=== PATIENT | female | born 2000 | race Caucasian/White ===

== ENCOUNTER 2023-01-10 14:52 | Emergency (ER) | payer OTHER, SELFPAY ==
--- NOTE | ~2023-01-10 | XR_ITS ---
Indication: Pain EXAMINATION: Right hand. 3 views the right hand are obtained and 1 detailed image of the right wrist. Navicular view There is no fracture or dislocation in the right hand. No fracture of the navicular on the detailed navicular view. XR/XR hand wrist RT IMPRESSION: No fracture or dislocation is seen
[2023-01-10 14:59] VITALS: BP 135/72; PULSE 93; RESP 18; TEMP 36.8; O2SAT 98
--- NOTE | 2023-01-10 14:59 | ED.UPPEXIN ---
HPI - Extremity Injury (Upper) General Chief Complaint: Extremity Problem <JOHN Solorio Last Filed: 01/10/23 15:00> Stated Complaint: R hand Inj/work inj <JOHN Solorio Last Filed: 01/10/23 15:00> Time Seen by Provider: 01/10/23 15:53 <JOHN Solorio Last Filed: 01/10/23 15:00> Source: patient <JOHN Wayne Last Filed: 01/10/23 18:14> Mode of arrival: ambulatory <JOHN Wayne Last Filed: 01/10/23 18:14> History of Present Illness HPI narrative: 22-year-old female with no significant past medical history presenting to the ED complaining of right hand injury s/p being slammed/crushed in metal door at work this morning. Reports door closes automatically and hand got stuck. Denies injury to other area, numbness/tingling, weakness <JOHN Wayne Last Filed: 01/10/23 18:14> MD complaint: injury to: hand <JOHN Wayne Last Filed: 01/10/23 18:14> Related Data Allergies/Adverse Reactions: Allergies Allergy/AdvReac Type Severity Reaction Status Date / Time No Known Allergies Allergy Unverified 06/14/20 17:04 CATS Allergy Unknown Uncoded 11/02/19 00:00 <JOHN Solorio Last Filed: 01/10/23 15:00> Review of Systems Review of Systems: Constitutional: No Fever, No Chills ENT/Mouth: No Ear Pain, No Nasal Congestion, No Sinus Pain, No Hoarseness, No sore throat, No Rhinorrhea, No Swallowing Difficulty Cardiovascular: No Chest Pain, No SOB Respiratory: No Cough, No Sputum Gastrointestinal: No Nausea, No Vomiting, No Diarrhea, No Constipation, No Abdominal pain Genitourinary: No Dysuria, No Urinary Frequency, No Hematuria, No Urgency, No Flank Pain Musculoskeletal: + joint pain, No Myalgias, + Joint Swelling Skin: + Ecchymosis, No rash Neuro: No Weakness, No Numbness, No Paresthesias <JOHN Wayne Last Filed: 01/10/23 18:14> Yes all other systems are reviewed and are negative <JOHN Wayne - Last Filed: 01/10/23 18:14> Constitutional: Constitutional: Reports as per HPI <JOHN Wayne - Last Filed: 01/10/23 18:14> [facility] Past Medical History Attestation statement: The following information was validated with the patient. <JOHN Wayne - Last Filed: 01/10/23 18:14> Social History Social History: Social History Advance Directives: No Advance Directives Information Provided: No <JOHN Solorio - Last Filed: 01/10/23 15:00> Physical Exam Vital Signs: Vital Signs: Last Vital Signs Temp 98.2 F 01/10/23 14:59 Pulse 93 01/10/23 14:59 Resp 18 01/10/23 14:59 BP 135/72 01/10/23 14:59 Pulse Ox 98 01/10/23 14:59 O2 Del Method Room Air 01/10/23 14:59 BMI result Body Mass Index 30.0 <JOHN Solorio - Last Filed: 01/10/23 15:00> Vital Signs: Last Vital Signs Temp 98.2 F 01/10/23 14:59 Pulse 93 01/10/23 14:59 Resp 18 01/10/23 14:59 BP 135/72 01/10/23 14:59 Pulse Ox 98 01/10/23 14:59 O2 Del Method Room Air 01/10/23 14:59 BMI result Body Mass Index 30.0 <JOHN Wayne - Last Filed: 01/10/23 18:14> Const: General: cooperative, healthy appearing, comfortable and no acute distress <JOHN Wayne - Last Filed: 01/10/23 18:14> Orientation/consciousness: patient oriented x3 <JOHN Wayne - Last Filed: 01/10/23 18:14> Limitations: no limitations <JOHN Wyane - Last Filed: 01/10/23 18:14> HEENT: Head: Yes normal to inspection and Yes atraumatic <Zaira Ramos PA - Last Filed: 01/10/23 18:14> Ears: hearing grossly normal bilaterally <Zaira Ramos PA - Last Filed: 01/10/23 18:14> General nose exam: Normal external nose present <Zaira Ramos PA - Last Filed: 01/10/23 18:14> Face and sinus: Yes normal facial exam <Zaira Ramos PA - Last Filed: 01/10/23 18:14> Eyes: General: appearance normal, both eyes and all related structures <Zaira Ramos PA - Last Filed: 01/10/23 18:14> EOM: EOMs intact bilaterally <Zaira Ramos PA - Last Filed: 01/10/23 18:14> Neck: Neck: Yes normal visual inspection and Yes no meningeal signs <Zaira Ramos PA - Last Filed: 01/10/23 18:14> Resp: Effort & Inspection: normal respiratory effort and no respiratory distress <Zaira Ramos PA - Last Filed: 01/10/23 18:14> Cardio: Rate: regular rate <Zaira Ramos PA - Last Filed: 01/10/23 18:14> Peripheral pulses: radial pulses present and ulnar radial pulses present <Zaira Ramos PA - Last Filed: 01/10/23 18:14> Skin: Rashes: no rashes <Zaira Ramos PA - Last Filed: 01/10/23 18:14> Neuro: General: patient oriented x3, tone normal and no meningeal signs <Zaira Ramos PA - Last Filed: 01/10/23 18:14> Gait exam (Neuro): Normal gait present <Zaira Ramos PA - Last Filed: 01/10/23 18:14> Extrem: Other: Right hand with noted swelling and ecchymosis > 3rd and 4th MCPs. + tender to palpation. Full range of motion to all digits and finger to thumb opposition intact. Sensation intact to light touch. Wrist nontender, no snuffbox tenderness <Zaira Ramos PA - Last Filed: 01/10/23 18:14> Course Course Course Narrative: This is an RME: Additional HPI, ROS, PE not included below will be deferred to primary provider. 22-year-old female presents with right knuckle/hand/wrist pain status post getting caught in a heavy bathroom door. Patient reports pain worse with movement better at rest. Denies numbness and tingling. Patient has fracture that wrist in the past. This was a work related injury. Physical exam with discomfort with range of motion of right wrist. Plan- iamging <JOHN Solorio - Last Filed: 01/10/23 15:00> This is an RME: Additional HPI, ROS, PE not included below will be deferred to primary provider. 22-year-old female presents with right knuckle/hand/wrist pain status post getting caught in a heavy bathroom door. Patient reports pain worse with movement better at rest. Denies numbness and tingling. Patient has fracture that wrist in the past. This was a work related injury. Physical exam with discomfort with range of motion of right wrist. Plan- iamging 1630--XR hand wrist RT IMPRESSION: No fracture or dislocation is seen Results discussed with patient including worrisome signs and symptoms and strict return precautions, and when to return to the emergency department. They verbalized understanding and feel safe for discharge at this time. <JOHN Wayne - Last Filed: 01/10/23 18:14> Medical Decision Making Medical Decision Making MDM Narrative: 22-year-old female with no significant past medical history presenting to the ED complaining of right hand injury s/p being slammed/crushed in metal door at work this morning. On exam vital signs stable, NAD, nontoxic appearing, physical exam as noted above. Concern for crush injury/fracture vs sprain. No evidence of cellulitis/infection. Low suspicion for septic joint Plan: X-rays Please refer to course for remaining clinical decision making, interpretation of labs/imaging results, and discussions with consultants and/or family members. <JOHN Wayne Last Filed: 01/10/23 18:14> Differential Diagnosis Differential Diagnoses: The differential diagnosis associated with the presentation includes <JOHN Wayne Last Filed: 01/10/23 18:14> As above <JOHN Wayne Last Filed: 01/10/23 18:14> Admission/Observation Consideration of admission/observation: Escalation of care including admission/observation considered <JOHN Wayne - Last Filed: 01/10/23 18:14> Lab Data MDM Lab Attestation statement: I reviewed the patient's lab results. <JOHN Wayne - Last Filed: 01/10/23 18:14> Radiology Impression Discussion of test interpretation with radiology: I have reviewed the radiologist's reading. <JOHN Wayne - Last Filed: 01/10/23 18:14> External Record Review External record reviewed: Inpatient record, Office record, Outpatient record, Prior outpatient labs, Prior outpatient radiology, Primary care record and Outside ED record <JOHN Wayne - Last Filed: 01/10/23 18:14> Discharge Plan Discharge Clinical Impression: Crush injury of hand <JOHN Solorio - Last Filed: 01/10/23 15:00> Patient Disposition: Home, Self-Care <JOHN Solorio - Last Filed: 01/10/23 15:00> Instructions: Crush Injury (ED) <JOHN Solorio - Last Filed: 01/10/23 15:00> Additional Instructions: Your x-rays do not show a fracture/break. you likely sprained your hand Ice and elevate. Take Tylenol and Motrin as needed for pain If symptoms persist or worsen, pain becomes unbearable, area begins to look infected return to the ED <JOHN Solorio - Last Filed: 01/10/23 15:00> Referrals: Physician,Unknown J [Primary Care Provider] - <JOHN Solorio - Last Filed: 01/10/23 15:00> Interventions: ED Discharge Assessment Last Done: 01/10/23 16:52 <JOHN Solorio - Last Filed: 01/10/23 15:00> Discharge Date/Time: 01/10/23 16:53 <JOHN Solorio - Last Filed: 01/10/23 15:00>
--- OUTSIDE RECORDS SUMMARY | 2023-01-10 16:14 | XMS_ITS | Continuity of Care Document ---
Author Name Unknown Organization [facility] ter Address [address] [place] [id number]- Care Team Providers Care Production Editor Name Role Phone Villa Ahumada MD Primary Care Physician Encounter [facility] [place] Date(s): 10/14/19 - 10/14/[address] [address]- [facility] Discharge Disposition: A-D/C Home Attending Physician: David Schaeffer MD Admitting Physician: David Schaeffer MD Referring Physician: Not on Staff, Referring MD Allergies, Adverse Reactions, Alerts No Known Medication Allergies Substance Reaction Severity Status Cats Active Medications albuterol 90 mcg/inh inhalation powder 1 puffs, Inhalation, Every 4 hours, PRN as needed, # 1 each, 0 Refills, Maintenance, 11/23/16 20:37:30, Powder Start Date: 11/23/16 Status: Ordered naproxen 250 mg oral tablet 250 mg, 1, tablet, By Mouth, 2 times a day, PRN, # 20 tablet, Refills 0, Tot. Refills 0, Maintenance, for pain, 10/14/19 16:04:00 EST, Print Requisition Start Date: 10/14/19 Status: Ordered Results Radiology Reports * Exam Date Time Procedure Performing Provider Status 10/14/19 3:06 PM Hand Min 3 Views Right Julien , Car men; Auth (Verified) Notes: (Hand Min 3 Views Right) Reason For Exam: Pain RESULT: Hand Min 3 Views Right Hand Min 3 Views Right, 3 views Reason: Pain; Clinical Question(s): Fracture; Hx of Present Illness: shut right hand in door 6 daysago, pain, unable to move; Other Objective Findings: alert, active, resp unlabored, mmm, right handwith swelling and bruising, + CMS COMPARISON: None. FINDINGS: No fractures or bone lesions. No arthritic changes. Normal soft tissues. IMPRESSION: No acute fracture or dislocation. No significant degenerative change. WSN: [id number] Dictated By: Celestine Nair MD Dictated Date/Time: 10/14/19 3:10 pm Reviewed By: Celestine Nair MD Signed By: Celestine Nair MD Signed Date/Time: 10/14/19 3:10 pm Transcribed By: ANAI Transcribed Date/Time: 10/14/19 3:09 pm Vital Signs Most recent to oldest [Reference Range]: 1 2 Height 153 cm (10/14/19 2:39 PM) 153 cm (10/14/19 2:18 PM) Weight 53.7 kg (10/14/19 2:39 PM) 53.7 kg (10/14/19 2:18 PM) Oxygen Saturation [94-100 %] 100 % (10/14/19 2:18 PM) Pulse Rate [55-90 bpm] 65 bpm (10/14/19 2:18 PM) Body Mass Index [18.5-24.99] 22.94 (10/14/19 2:18 PM) Blood Pressure [80-130/50-80 mm Hg] 110/ 53mm Hg (10/14/19 2:18 PM) Respiratory Rate [16-30 br/min] 18 br/mi n (10/14/19 2:18 PM) Temperature [96.8-100.4 DegF] 98.0 DegF (10/14/19 2:18 PM) Mode of Delivery (Oxygen) Room air (10/14/19 2:18 PM) Blood pressure sites Arm, left (10/14/19 2:18 PM) Temperature Route Oral (10/14/19 2:18 PM) Dry Weight 53.7 kg (10/14/19 2:39 PM) 53.7 kg (10/14/19 2:18 PM) Weight Obtained Via Standing scale (10/14/19 2:18 PM) Dry Weight Obtained Via Standing scale (10/14/19 2:18 PM)
== END 2023-01-10 16:53 | disposition home or self-care (01) ==
PROVIDERS: Emergency Provider Emergency Medicine
DX: S67.21XA Crushing injury of right hand, initial encounter (principal); W23.1XXA Caught, crushed, jammed, or pinched between stationary objects, initial encounter; Y93.89 Activity, other specified; Y92.512 Supermarket, store or market as the place of occurrence of the external cause; Y99.0 Civilian activity done for income or pay
CPT/HCPCS: 73110; 73130; 99282; 99283

== ENCOUNTER 2023-01-19 12:29 | Outpatient (REF) | payer MEDICAID, SELFPAY ==
--- NOTE | ~2023-01-19 | US_ITS ---
EXAMINATION: US DIAGNOSTIC ULTRASOUND BREAST, LEFT CLINICAL INFORMATION: 22-year-old female with palpable area upper left breast, appears recently increased. No prior breast imaging. COMPARISON: None (current study represents initial baseline exam). TECHNIQUE: Ultrasound left breast is targeted to the area of clinical concern upper breast using grayscale imaging and color Doppler without and with harmonics. Patient is able to point to the area of concern at time of imaging. FINDINGS: The palpable concern corresponds to a solid circumscribed macrolobulated mass 12:00 position 7 cm from nipple measuring approximately 1.9 x 1.4 x 1.8 cm. There is some refractory shadowing from the margins and central increased through-transmission of sound. Internal or peripheral color flow is seen. There is no other cystic or solid mass or architectural abnormality. No focal duct ectasia. Results are discussed with the patient and her grandmother at time of visit. 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 Management options are discussed. Patient and family are in favor of ultrasound-guided core sampling to confirm benignity. Results and recommendation called to district medical examiner (Pal[place]) for primary care provider Tawana Pfeiffer NP on 01/19/2023. US/US breast LT limited IMPRESSION: Palpable concern corresponds to a mass 12:00 left breast 1.9 cm. ASSESSMENT: BI-RADS 4: Suspicious (subcategory 4A: Low suspicion for malignancy) RECOMMENDATION: Ultrasound-guided core sampling left breast mass.
== END 2023-01-19 12:30 | disposition home or self-care (01) ==
LOC: HO.MAMMO 12:29
PROVIDERS: PCP Registered Nurse; Visit Provider Registered Nurse
DX: N63.21 Unspecified lump in the left breast, upper outer quadrant (principal)
CPT/HCPCS: 76642

== ENCOUNTER → 2023-01-21 10:09 | Outpatient (BNVA) | payer MEDICAID, SELFPAY | PROVIDERS: PCP Registered Nurse; Visit Provider Surgery | DX: N63.25 Unspecified lump in the left breast, overlapping quadrants (principal) | CPT/HCPCS: 99202 ==

== ENCOUNTER 2023-01-22 07:54 | Outpatient (REF) | payer MEDICAID, SELFPAY ==
--- NOTE | ~2023-01-22 | US_ITS ---
EXAMINATION: ULTRASOUND GUIDED CORE BIOPSY BREAST, LEFT CLINICAL INFORMATION: 22-year-old with solid mass left breast 1.9 cm, suspect fibroadenoma. COMPARISON: Targeted left breast ultrasound 01/19/2023. FINDINGS: Proper informed consent is obtained from the patient after discussion of the procedure, potential risks and complications, and alternatives. Patient was given an opportunity for questions. The patient appeared to understand. The patient consented to the procedure and signed the consent form. GUIDANCE: Ultrasound-guided; aseptic technique. LESION: Macrolobulated solid circumscribed mass 12:00 position 7 cm from nipple, 1.9 cm, suspect fibroadenoma. APPROACH: Lateral medial. ANESTHESIA: 15 mL carbonated 1% lidocaine. DERMATOTOMY: Single skin daniel dermatotomy performed. NEEDLE: 14-gauge Achieve core biopsy device with 13.5-gauge co-axial guide needle. CORES: 5. CLIP: HydroMARK; shape: butterfly. Clip deployment placed within the nodule is visualized during real-time ultrasound. Postprocedure mammography not performed. The patient tolerated the procedure well. No immediate complications. Home instructions reviewed with the patient. Final pathology results are pending. US/US breast ndl core biopsy LT IMPRESSION: 1. Status post ultrasound-guided core biopsy left breast. 2. Clip placed: HydroMARK; shape: butterfly. 3. Pathology pending. An addendum report will be issued.
[2023-01-22] MEDS: Lidocaine HCl 1 % 20 ML VIAL 9 ML SUBCUT (09:43)
[2023-01-22] MEDS: Sodium Bicarbonate 8.4% 50 MEQ/50 ML VIAL SUBCUT (09:44)
== END 2023-01-22 07:55 | disposition home or self-care (01) ==
LOC: HO.MAMMO 07:54
PROVIDERS: PCP Registered Nurse; Visit Provider Surgery
DX: N63.25 Unspecified lump in the left breast, overlapping quadrants (principal)
CPT/HCPCS: 19083; 88305

== ENCOUNTER → 2023-01-30 09:21 | Outpatient (BNVA) | payer MEDICAID, SELFPAY | PROVIDERS: PCP Registered Nurse; Visit Provider Surgery | DX: N63.20 Unspecified lump in the left breast, unspecified quadrant (principal) | CPT/HCPCS: 99212 ==

== ENCOUNTER 2023-02-20 07:34 | Day surgery (SDC) | payer MEDICAID, SELFPAY ==
[2023-02-17 14:43] VITALS: BMI 30.2
--- NOTE | 2023-02-19 09:45 | HO.ANESPROP2 ---
Documented by User: Jennifer Lee NP 02/19/23 09:45 HPI - Anesthesia Eval Consult details Narrative: 22yo F for Left Breast Mass Excision [facility] Active Problems Active Problems: All Active Problems (Updated 02/17/23 @ 14:41 by Cortney Nunez RN) Left breast mass (Acute) Past Medical History Medical History (Updated 02/17/23 @ 14:38 by Cortney Nunez RN) Appendix abscess Asthma Surgical History Surgical History (Updated 02/17/23 @ 14:41 by Cortney Nunez RN) Hx of appendectomy Hx of ultrasound guided needle biopsy Social History Social History Alcohol intake: never Patient Tobacco Use Status: Never used Tobacco Are you DNR?: No Advance Directives: No Advance Directives Information Provided: Yes Meds Allergies Allergy/AdvReac Type Severity Reaction Status Date / Time cat dander [cats] Allergy Intermediate Swelling Verified 02/17/23 14:38 Home Medications Medication Instructions Recorded Confirmed Last Taken Type albuterol sulfate 90 mcg/actuation 1 inh inhalation QID 01/21/23 02/17/23 Unknown History aerosol inhaler Exam Exam Date and Time: February 19, 2023 0945 Height,Weight and Vital Signs: Height 5 ft 1 in Weight 72.575 kg Assessment and Plan Assessment Anesthesia Assessment: Chart Reviewed Documented by User: Jhon Salas MD 02/20/23 09:17 [facility] Past Medical History Medical History (Updated 02/17/23 @ 14:38 by Cortney Nunez RN) Appendix abscess Asthma Family History Family history of problems with anesthesia: No Surgical History Surgical History (Updated 02/17/23 @ 14:41 by Cortney Nunez RN) Hx of appendectomy Hx of ultrasound guided needle biopsy History of Problems with Anesthesia: No Social History Social History Alcohol intake: never Patient Tobacco Use Status: Never used Tobacco Are you DNR?: No Advance Directives: No Advance Directives Information Provided: Yes Meds Allergies Allergy/AdvReac Type Severity Reaction Status Date / Time cat dander [cats] Allergy Intermediate Swelling Verified 02/17/23 14:38 Home Medications Medication Instructions Recorded Confirmed Last Taken Type albuterol sulfate 90 mcg/actuation 1 inh inhalation QID 01/21/23 02/17/23 Unknown History aerosol inhaler Exam Airway Mallampati Class: II TM Dist: >3cm Neck ROM: Full Heart: rrr Lungs: cta Assessment and Plan Assessment Anesthesia Assessment: Anesthesia Plan Discussed Final Anesthetic Review Family History of Problems with Anesthesia: No History of Problems with Anesthesia: No NPO: Yes ASA Class: II Final Preanesthetic Review: No Changes in Pt Med Stat, Meds/Allgs Chart Reviewed and Anes Risks/Benef Reviewed Patient Risk: Low Procedure Risk: Low Anesthetic Plan Anesthetic Plan: GA Disposition: Standard PACU
--- NOTE | 2023-02-19 11:30 | MHC.SHP ---
Pre-Procedural Eval Section A Date of Service: 02/19/23 The patient is an INPATIENT: No Changes since office visit: No Cold of Flu in the past 2 weeks, No New Medical Problems, No Changes in Medication and No Patient answered all questions The History & Physical has been completed within 30 days and I have reviewed it.: Yes Section B Chief Complaint: Unspecified lump in the left breast, unspecified Allergies: Allergies Allergy/AdvReac Type Severity Reaction Status Date / Time cat dander [cats] Allergy Intermediate Swelling Verified 02/17/23 14:38 Plan I have reviewed the history and physical and performed a pertinent physical examination on my patient. No changes have occurred unless specified. Time Spent With Patient Time: Total time managing care of this patient today ____ minutes.
[2023-02-20 07:51] LABS: UPreg QC Valid YES; Urine Pregnancy NEGATIVE (NEGATIVE)
[2023-02-20 08:02] VITALS: BP 105/39; PULSE 83; RESP 18; TEMP 36.1; O2SAT 98
[2023-02-20] MEDS: Lactated Ringers 1,000 ML 100 ML IVCONT (08:05)
--- NOTE | 2023-02-20 10:02 | P.OP_ITS ---
Operative Note Operative Note Date of Service: 02/20/23 Narrative: Preoperative diagnosis: [] left breast mass 12 o'clock position Postop diagnosis: [] same Procedure [] excision left breast mass Surgeon: [] Toño Threading Machine Setter: [] Type of Anesthesia: [] general Indication for surgery: [] final specimen measured approximately 7 x 6 cm consistent clinically with a large fibroadenoma Findings: [] patient brought to the operating room, placed on the operative table in supine position, after adequate level of general anesthesia was induced, the left breast was prepped and draped in usual sterile fashion. Using a transverse incision over the mass in question at the 12 o'clock po sition, this carried down through skin, subcutaneous tissue and superior and inferior skin flaps were developed using Bovie. Mass in question was identified and circumferentially dissected out using Bovie. Specimen sent to pathology. Dimensions as described above. Wound was irrigated, secured hemostasis, and closed using interrupted inverted dermal 3-0 Vicryl sutures followed by Steri-Strips and sterile dressings. Wound was infiltrated 0.5% Marcaine at completion. Sponge, needle, instrument counts reported to be correct. Patient tolerated the procedure well and emerged anesthesia stable condition. EBL minimal
[2023-02-20 10:06] VITALS: BP 101/64; PULSE 87; RESP 16; TEMP 36.3; O2SAT 100
[2023-02-20 10:11] VITALS: BP 104/61; PULSE 83; RESP 16; O2SAT 100
[2023-02-20 10:16] VITALS: BP 99/61; PULSE 82; RESP 16; O2SAT 100
[2023-02-20 10:21] VITALS: BP 108/64; PULSE 73; RESP 16; O2SAT 100
[2023-02-20 10:36] VITALS: BP 114/58; PULSE 72; RESP 18; TEMP 36.8; O2SAT 100
== END 2023-02-20 11:02 | disposition home or self-care (01) ==
PROVIDERS: Nurse Practitioner; PCP Registered Nurse; Visit Provider Surgery
PROC: (CPT 19120; principal; 2023-02-20 09:30)
DX: D24.2 Benign neoplasm of left breast (principal); N60.92 Unspecified benign mammary dysplasia of left breast; J45.909 Unspecified asthma, uncomplicated; Z90.49 Acquired absence of other specified parts of digestive tract; Z79.899 Other long term (current) drug therapy
CPT/HCPCS: 19120; 81025; 88305; 88307; J0131; J0690; J1100; J1885; J2405; J2795

== ENCOUNTER → 2023-02-27 12:01 | Outpatient (BNVA) | payer MEDICAID, SELFPAY | PROVIDERS: PCP Registered Nurse; Visit Provider Surgery | DX: Z48.00 Encounter for change or removal of nonsurgical wound dressing (principal) | CPT/HCPCS: 99211 ==

== ENCOUNTER 2023-11-02 12:01 | Outpatient (REF) | payer MEDICAID, SELFPAY ==
--- NOTE | ~2023-11-02 | XR_ITS ---
EXAMINATION: XR FINGER, LEFT CLINICAL INFORMATION: Left index finger PIP joint COMPARISON: Left wrist radiograph from 02/01/2017 TECHNIQUE: Three views of the left index finger. FINDINGS: No acute visible fracture or dislocation. Joint spaces and alignment are maintained. Soft tissues are unremarkable. XR/XR finger LT min 2V IMPRESSION: No acute visible fracture or dislocation.
== END 2023-11-02 12:02 | disposition home or self-care (01) ==
LOC: HO.HHCX 12:01
PROVIDERS: Visit Provider Emergency Medicine
DX: S67.191A Crushing injury of left index finger, initial encounter (principal); X58.XXXA Exposure to other specified factors, initial encounter; Y93.9 Activity, unspecified; Y92.9 Unspecified place or not applicable; Y99.9 Unspecified external cause status
CPT/HCPCS: 73140

== ENCOUNTER 2025-02-02 13:31 | Outpatient (REF) | payer MEDICAID, SELFPAY ==
--- NOTE | ~2025-02-02 | XR_ITS ---
EXAMINATION: XR HAND 3 OR MORE VIEWS RIGHT HISTORY: hit with heavy door with swelling at dorsal pointer MCP COMPARISON: Comparison is made with the prior examination dated 01/10/2023. FINDINGS: Three views of the right hand are submitted. Osseous mineralization is normal. There is no fracture or dislocation. The joint spaces are preserved. The soft tissues are unremarkable. XR/XR hand RT min 3V IMPRESSION: Unremarkable examination of the right hand. Electronically signed by: Nicanor Guevara MD 02/02/2025 02:02 PM EDT
--- OUTSIDE RECORDS SUMMARY | 2025-02-02 14:34 | XMS_ITS | Encounter Summary ---
Author Organization [employer] Address [address] [place] [address] Care Team Providers Care Embedded Firmware Developer Name Role Phone Joan Sandy Primary Care Provider [phone] Verónica Huffman MD Primary Care Provider [phone] Encounter Details Date Type Department Care Team (Late st Contact Info) Description 04/09/2023 Abstract [facility] [address] [place] [address] Joan Sandy FNP [address], [place] [id number] Social History Tobacco Use Types Packs/Day Years Used Date Smoking Tobacco: Never Smokeless Tobacco: Never Comments Unknown Sex and Gender Information Value Date Recorded Sex Assigned at Female 07/28/2022 10:17 AM EDT Legal Sex Female 10:17 AM EDT Gender Identity Female 07/28/2022 10:17 AM EDT Sexual Orientation Lesbian or Anderson 11/06/2022 1: 38 PM EST documented as of this encounter Plan of Treatment Not on file documented as of this encounter Procedures Procedure Name Priority Date/Time Associated Diagnosis Comments EXTERNAL BREAST BIOPSY Routine 01/22/2023 documented in this encounter Results * External Breast Biopsy (01/22/2023) Anatomical Region Laterality Modality Breast N/A Mammography Narrative 01/22/2023 Left ??breast US biopsy revealed a fibroadenoma . Patient choose to have lump excised us Historical Provider MD [place] BI PROCEDURES Final R esult documented in this encounter Visit Diagnoses Not on filedocumented in this encounter Care Teams Embedded Firmware Developer Relationship Specialty Start Date End Date Joan Sandy FNP [address] [place] [address] PCP - General Family Medicine 07/03/22 10/06/23 Verónica Huffman MD [address] [place] [address] PCP - General Family Medicine 10/07/23 documented as of this encounter
--- OUTSIDE RECORDS SUMMARY | 2025-02-02 14:34 | XMS_ITS | Encounter Summary ---
Author Organization [employer] Address [address] [place] [address] Care Team Providers Care Advanced Registered Nurse Name Role Phone Verónica Huffman MD Primary Care Provider [phone] Reason for Visit * Reason Onset Date Comments Appointment Request 04/20/2024 Encounter Details Date Type Department Care Team ([facility] st Contact Info) Description 04/20/2024 Telephone [facility] MEDICINE [address] [place] [address] Verónica Huffman MD [address] [place], [place] [phone] Appointment Request Social History Tobacco Use Types Packs/Day Years Used Date Smoking Tobacco: Never Smokeless Tobacco: Never Alcohol Use Standard Drinks/Week Comments Yes 0 (1 standard drink = 0.6 oz pur e alcohol) occasional Depression Answer Date Recorded Patient Health Questionnaire-9 Score 0 11/27/2023 Patient Health Questionnaire-9 Score 0 11/27/2023 Last PHQ-9: Questionnaire Data Not on file 0 11/27/2023 Housing Stability Answer Date Recorded What is your housing situation today? I have regina key 11/27/[address] you li ve. Do you have problems with any of the following? None of the above 11/27/2023 Food Insecurity Answer Date Recorded Within the past 12 months, y ou worried that your food would run out before you got money to buy more: Never True 11/27/2023 Within the past 12 months,th e food you bought just didn't last and you didn't have enough money to get more: Never True 09/2023 Transportation Answer Date Recorded In the past 12 months, has l ack of transportation kept you from medical appts, meetings, work or from getting things needed for daily living? Yes, it has kept me from medical appointments or getting medications. 11/27/2023 Utilities Answer Date Recorded In the past 12 months, has t he electric, gas, oil or water company threatened to shut off services in your home? No 11/27/2023 Depression Answer Date Recorded Patient Health Questionnaire-2 Score 0 11/27/2023 Comments No Sex and Gender Information Value Date Recorded Sex Assigned at Female 07/28/2022 10:17 AM EDT Legal Sex Female 10:17 AM EDT Gender Identity Female 07/28/2022 10:17 AM EDT Sexual Orientation Lesbian or Anderson 11/06/2022 1: 38 PM EST documented as of this encounter Miscellaneous Notes * Telephone Encounter - Casandra Mendez - 04/20/2024 1:21 PM EDT Tc from pt requesting PE appt, pt will like to do lab wok and referrals. documented in this encounter Plan of Treatment Not on file documented as of this encounter Visit Diagnoses Not on filedocumented in this encounter Additional Health Concerns Assessment Noted Time PHQ-9 Depression Total Score: 0 11/27/19 2:01 PM EST documented as of this encounter Care Teams Advanced Registered Nurse Relationship Specialty Start Date End Date Verónica Huffman MD [address] [place] [address] PCP - General Family Medicine 10/07/23 documented as of this encounter
--- OUTSIDE RECORDS SUMMARY | 2025-02-02 14:34 | XMS_ITS | Clinical Summary ---
Author Organization [employer] Address [address] 7[address] [place] [address] Care Team Providers Care Health Care Attorney Name Role Phone Verónica Huffman MD Primary Care Provider [phone] Allergies Active Allergy Reactions Criticality Noted Date Comments Cat Dander Swelling High 02/17/2023 Medications * This document contains information received from the source organization and may not represent a complete record from that organization. fluticasone (Flonase Allergy Relief) 50 MCG/ACT nasal spray 2 puffs each nostril daily 1 Active albuterol 108 (90 Base) MCG/ACT inhalerIndication s:Mild persistent asthma without complication Inhale 2 puffs every 6 (six) hours if needed for wheezing. 18 g 11 4 08/10/20 25 Active albuterol 108 (90 Base) MCG/ACT inhalerIndication s:Mild asthma with exacerbation, unspecified whether persistent Inhale 2 puffs every 6 (six) hours if needed for wheezing. 18 g 2 4 08/29/20 25 Active sertraline (Zoloft) 25 MG tablet Take 1 tablet (25 mg) by mouth in the morning. 30 tablet 4 Active ibuprofen 600 MG tabletIndications :Crushing injury of right hand, initial encounter Take 1 tablet (600 mg) by mouth every 8 (eight) hours if needed for moderate pain or fever. 30 tablet 5 03/04/20 25 Active Active Problems Problem Noted Date Diagnosed Date Crushing injury of right hand 02/02/2025 Assessment & Plan (02/02/2025 1:56 PM EDT): Crush injury this morning. Works as a cook, is right-handed. -ordered XR of right hand. -wrapped hand -referred to Orthopedics -given work note and instructed pt to call if symptoms prolong and work requires an updated note. -dicussed to call if not restored to full ROM for occupational therapy referral. Mild asthma with exacerbation 08/29/2024 Assessment & Plan (08/30/2024 4:33 PM EST): RR 20-22, sats 100% on RA, no accessory muscle use Prednisone taken in office Duoneb given in office with improvement in aeration Continue Albuterol 2-4 puffs every 4-6 hours Return precautions if no improvement after albuterol treatment, or symptoms same or worsening after 24-48 hours Assessment & Plan (08/29/2024 2:46 PM EST): Patient educated to avoid asthma triggers I will treat with prednisone for 5 days Nebulization today with albuterol Albuterol inhaler refilled RTC if further concerns Moderately severe depression 08/10/2024 Assessment & Plan (08/10/2024 2:48 PM EST): Connected to BE today with Eddie Schultz Will be preferred to OP Also will consider SSRI after initiation of therapy if needed Current mild episode of adriana r depressive disorder without prior episode 07/07/2024 Assessment & Plan (07/07/2024 3:47 PM EDT): Will work on food/eating as means of managing depressive symptoms Will refer to BE as well Routine history and physical examination of adul t 12/01/2023 Assessment & Plan (12/01/2023 12:17 PM EST): Counseled on routine and preventative care Encouraged healthy diet and exercise 30 minutes of the day most days of the week Left breast mass 11/02/2023 11/02/2023 Crushing injury of left index finger 11/02/2023 Assessment & Plan (11/02/2023 2:48 PM EST): -x-ray ordered to rule out broken bone -agreeable to tetanus vax booster -patient educated on signs of infection to look for: redness, warmth of affected site, drainage at the site. -take ibuprofen as ordered for pain -apply ice for swelling -maintain adequate mobility of the joint. -return to clinic if signs of infection or worsening pain Mild persistent asthma 01/15/2023 Assessment & Plan (07/07/2024 3:45 PM EDT): Will see in person to determine whether asthma is active again Vitamin D deficiency 03/13/2020 Allergic rhinitis 07/03/2015 Encounters * This document contains information received from the source organization and may not represent a complete record from that organization. Date Type Department Care Team Description 02/02/2025 2:20 PM EDT Office Visit [facility] [address] [place] [address] Crushing injury of right hand, initial encounter (Primary Dx) 01/04/[address] [facility] MEDICINE [address] [place] [address] Verónica Huffman MD recall 12/09/2024 Population Health Risk Score [facility] () Department [address] [place] [address] [phone] Provider, Population Health Generic from Last 3 Months Immunizations Name Administration Dates Next Due DTaP 11/09/2007, 7,08/14/2003,03/27,2002 HPV 9-Valent 07/03/2015 HPV, Quadrivalent 04/06/2014,01/26/2013 Hep A, ped/adol, 2 dose 07/03/2015,04/06/2014 Hep B, Adolescent or Pediatric 08/14/2003,2002,2002 Hib (HbOC) 09/13/2007, 7,08/14/2003,03/27,2002 IPV 11/09/2007, 3,03/27/2003,12/20 Influenza injectable quadriv alent preservative free 08/13/2021,07/10/2020,07/28/2018,06/28,10/30/2016,07/03/2015,11/07/2014 Influenza, IIV3, injectable 09/10/2007 MMR 11/09/2007,11/24/2003 Meningococcal MCV4P ACYW-135 01/18/2019,07/03/20 15 Pneumococcal Conjugate PCV 7 09/10/2007, 08/14/2003,03/27/2003,03/10,2002 Pneumococcal, Unspecified 09/10/2007,,03/27/2003,12/20 Tdap 11/02/2023,07/03/2015 Varicella 11/18/2007,11/09/2007,11/24/2003 Social History Tobacco Use Types Packs/Day Years Used Date Smoking Tobacco: Never Smokeless Tobacco: Never Tobacco Cessation:Counseling Given: Not Answered Alcohol Use Standard Drinks/Week Comments Yes 0 (1 standard drink = 0.6 oz pur e alcohol) occasional Depression Answer Date Recorded Patient Health Questionnaire-9 Score 18 08/10/2024 Patient Health Questionnaire-9 Score 18 08/10/2024 Last PHQ-9: Questionnaire Data Not on file 1 2023 Housing Stability Answer Date Recorded What is [...] Answer Date Recorded Patient Health Questionnaire-2 Score 6 08/10/2024 Internet Access Answer Date Recorded Internet Access Q1 Yes 08/02/2024 Internet Access Q2 Not on file 08/02/2024 Comments No Sex and Gender Information Value Date Recorded Sex Assigned at Female 07/28/2022 10:17 AM EDT Legal Sex Female 10:17 AM EDT Gender Identity Female 07/28/2022 10:17 AM EDT Sexual Orientation Lesbian or Anderson 11/06/2022 1: 38 PM EST Last Filed Vital Signs Vital Sign Reading Time Taken Comments Blood Pressure 115/59 02/02/2025 1:13 PM EDT Pulse 62 02/02/2025 1:13 PM EDT Temperature 37.1 ??C (98.8 ??F) 02/02/2025 1:13 PM ED T Respiratory Rate 16 02/02/2025 1:13 PM EDT Oxygen Saturation 100% 08/29/2024 11:38 AM EST Inhaled Oxygen Concentration - - Weight 52.7 kg (116 lb 3.2 oz) 02/02/2025 1:13 P M EDT Height 144.8 cm (4' 9 ) 02/02/2025 1:13 PM EDT Body Mass Index 25.15 02/02/2025 1:13 PM EDT Plan of Treatment Health Maintenance Due Date Last Done Comments Chlamydia and Gonorrhea Screening 2002 HIV Screening 2002 Alcohol/Substance Use Screening 2014 Family Planning (PISQ) 2017 Hepatitis C Screening 2020 Pneumococcal Vaccine: Pediatrics (0 to 5 Years) and At-Risk Patients (6 to 49) Years) (1 of 2 - PCV) 2021 09/10/2007, 09/10/2007, 08/14/2003, Additional history exists Pap Smear 2023 COVID-19 Vaccine ( season) 2024 03/04/2021, 02/04/2021 Influenza Vaccine (#1) 2024 , 07/10/2020, 07/28/2018, Additional history exists SDOH Screening 11/26/2024 11/27/2023 Mammogram 01/19/2025 01/19/2023 Depression Screening 08/10/2025 08/10/2024, 08/10/20 24 Tobacco Screening 02/02/2026 02/02/2025 DTaP/Tdap/Td Vaccines (7 - Td or Tdap) 11/02/2033 11/02/2023, 07/03/2015, 11/09/2007, Additional history exists Zoster Vaccines (1 of 2) 2052 RSV Patients and Patients Aged 60 years or older (1 - 1-dose 75+ series) 2077 Hepatitis B Vaccines Completed 08/14/2003, 2002, 2002 HIB Vaccines Completed 09/13/2007, 08/28, 08/14/2003, Additional history exists IPV Vaccines Completed 11/09/2007, 07/30, 03/27/2003, Additional history exists HPV Vaccines Completed 07/03/2015, 03/28, 01/26/2013 Hepatitis A Vaccines Completed 07/03/2015, 04/06/20 14 Meningococcal Vaccine Completed 01/18/2019, 015 RSV under 20 months Aged Out No longe r eligible based on patient's age to complete this topic Rotavirus Vaccines Aged Out No longer eligible based on patient's age to complete this topic Procedures Procedure Name Priority Date/Time Associated Diagnosis Comments XR HAND 3+ VIEWS RIGHT Routine 02/02/2025 1:32 PM EDT Crushing injury of right hand, initial encounter BI US BREAST COMPLETE LEFT Routine 01/19/2023 Mass of upper outer quadrant of left breast from Last 3 Months or Most Recently Relevant to Health Maintenance Results * XR Hand 3+ Views Right (02/02/2025 1:32 PM EDT) Anatomical Region Laterality Modality Upper Extremities, Hand Right Radiogra phic Imaging 02/02/2025 1:32 PM EDT Narrative 02/02/2025 2:05 PM EDT ?[facility] ?[address] ?[place] [address] ?XRay Report ? Signed ? Patient: Ling,Framshelly ?MR#: [id number] ?? [id number] ? : 2000 ?Acct:[id number] ? Age/Sex: 24 / F ?ADM Date: 02/02/25 ? Loc: HO.HHCX ? Attending Dr: Nichelle [place] MD ? Ordering Physician: Nichelle [place] MD ?? Date of Service: 02/02/25 ?? Procedure(s): XR hand RT min 3V ?? Accession Number(s): [id number] ? cc: Nichelle [place] MD ? EXAMINATION: ??XR HAND 3 OR MORE VIEWS RIGHT ? HISTORY: hit with heavy door with swelling at dorsal pointer MCP ? COMPARISON: Comparison is made with the prior examination dated ?? 01/10/2023. ? FINDINGS: ? Three views of the right hand are submitted. ??Osseous mineralization is ?? normal. ??There is no fracture or dislocation. ??The joint spaces are ?? preserved. ??The soft tissues are unremarkable. ? XR/XR hand RT min 3V ?? IMPRESSION: ? Unremarkable examination of the right hand. ? Electronically signed by: ??Nicanor Guevara MD ??02/02/2025 02:02 PM EDT ? Dictated By: ?Nicanor Guevara MD ? Signed By: ?<Electronically signed by Nicanor Guevara MD in OV> ?02/02/25 1402 ? DD/ 1332 ? TD/TT: 02/02/25 1344 ? Paper Sealer: ? Procedure Note Kalyan, Image - 02/02/[address] [address] XRay Report Signed Patient: Roma LingMR#: [id number] : 2000Acct:[id number] Age/Sex: 24 / FADM Date: 02/02/25 Loc: HO.HHCX Attending Dr: Nichelle [place] MD Ordering Physician: Nichelle [place] MD Date of Service: 02/02/25 Procedure(s): XR hand RT min 3V Accession Number(s): [id number] cc: Nichelle [place] MD EXAMINATION: XR HAND 3 OR MORE VIEWS RIGHT HISTORY: hit with heavy door with swelling at dorsal pointer MCP COMPARISON: Comparison is made with the prior examination dated 01/10/2023. FINDINGS: Three views of the right hand are submitted. Osseous mineralization is normal. There is no fracture or dislocation. The joint spaces are preserved. The soft tissues are unremarkable. XR/XR hand RT min 3V IMPRESSION: Unremarkable examination of the right hand. Electronically signed by: Nicanor Guevara MD 02/02/2025 02:02 PM EDT RP Dictated By: Nicanor Guevara MD Signed By: <Electronically signed by Nicanor Guevara MD in OV> 02/02/25 1402 DD/ 1332 TD/TT: 02/02/25 1344 Paper Sealer: us Nichelle [place] MD IMG XR PROCEDURES Edited R esult - Final * BI US Breast Complete Left (01/19/2023) Anatomical Region Laterality Modality Breast Left Ultrasound Narrative 01/19/2023 Bi-rads 4 - recommended US guided biopsy us Tawana Margarette ELEVATOR CONSTRUCTOR ELECTRIC IMG US PROCEDURES Final Result from Last 3 Months or Most Recently Relevant to Health Maintenance Insurance [facility] C3 Care Teams Health Care Attorney Relationship Specialty Start Date End Date Verónica Huffman MD [address] [place] [id number] PCP - General Family Medicine 10/07/23
--- OUTSIDE RECORDS SUMMARY | 2025-02-02 14:34 | XMS_ITS | Encounter Summary ---
Author Organization [employer] Address [address] [facility] [address]t [place] [address] Care Team Providers Care Global Chief Experience Officer Name Role Phone Joan Sandy Primary Care Provider [phone] Verónica Huffman MD Primary Care Provider [phone] Reason for Referral * Imaging (Routine) - Closed Specialty Diagnoses / Procedures Referred By Controdríguez t Referred To Contact Radiology Diagnoses Mass of upper outer quadrant of left breast Procedures US guided biopsy sentinel node core superficial not fna Joan Sandy FNP [address] [place] [address] Phone: tel: fax: [facility] [address] [place] [address] Phone: tel: fax: Referral ID Status Reason Start Date Expiration Date Visits Re quested Visits Authorized [id number] Closed 04/14/2023 04/13/2024 1 1 Encounter Details Date Type Department Care Team ([facility] st Contact Info) Description 04/14/2023 Orders Only [facility] MEDICINE [address] [place] [address] Joan Sandy FNP [address] [place] [address] Mass of upper outer quadrant of left breast (Primary Dx) Social History Tobacco Use Types Packs/Day Years Used Date Smoking Tobacco: Never Smokeless Tobacco: Never Comments Unknown Sex and Gender Information Value Date Recorded Sex Assigned at Female 07/28/2022 10:17 AM EDT Legal Sex Female 10:17 AM EDT Gender Identity Female 07/28/2022 10:17 AM EDT Sexual Orientation Lesbian or Anderson 11/06/2022 1: 38 PM EST documented as of this encounter Plan of Treatment Scheduled Orders Name Type Priority Associated Diagnoses Orde r Schedule US guided biopsy sentinel node core superficial not fna Imaging Routine Mass of upper outer quadrant of left breast Expected: 04/14/2023, Expires: 04/14/2024 documented as of this encounter Visit Diagnoses Diagnosis Mass of upper outer quadrant of left breast- Primary documented in this encounter Care Teams Global Chief Experience Officer Relationship Specialty Start Date End Date Joan Sandy FNP [address] [place] [address] PCP - General Family Medicine 07/03/22 10/06/23 Verónica Huffman MD [address] [place] [address] PCP - General Family Medicine 10/07/23 documented as of this encounter
--- OUTSIDE RECORDS SUMMARY | 2025-02-02 14:34 | XMS_ITS | Encounter Summary ---
Author Organization [employer] Address [address] [place] [address] Care Team Providers Care Hammer Runner Name Role Phone Verónica Huffman MD Primary Care Provider [phone] Reason for Referral * Consultation (Routine) - Pending Review Specialty Diagnoses / Procedures Referred By Chitra huffman Referred To Contact Hand Surgery Diagnoses Crushing injury of right hand, initial encounter Nichelle [place] MD [address] [place] [address] Phone: tel: fax: Referral ID Status Reason Start Date Expiration Date Visits Requested Visits Authorized [id number] Pending Review Specialty Services Required 02/02/2025 02/02/2026 1 1 Reason for Visit * Reason Comments Hand Injury Encounter Details Date Type Department Care Team ([facility] st Contact Info) Description 02/02/2025 2:20 PM EDT Office Visit [facility] [address] [place], [place] [phone] Crushing injury of right hand, initial encounter (Primary Dx) Social History Tobacco Use Types [...] PM EST documented as of this encounter Last Filed Vital Signs Vital Sign Reading Time Taken Comments Blood Pressure 115/59 02/02/2025 1:13 PM EDT Pulse 62 02/02/2025 1:13 PM EDT Temperature 37.1 ??C (98.8 ??F) 02/02/2025 1:13 PM ED T Respiratory Rate 16 02/02/2025 1:13 PM EDT Oxygen Saturation - - Inhaled Oxygen Concentration - - Weight 52.7 kg (116 lb 3.2 oz) 02/02/2025 1:13 P M EDT Height 144.8 cm (4' 9 ) 02/02/2025 1:13 PM EDT Body Mass Index 25.15 02/02/2025 1:13 PM EDT documented in this encounter Miscellaneous Notes * Assessment & Plan Note - Harshal Lorenzo - 02/02/2025 1:38 PM EDTAssociated Problem(s): Crushing injury of right hand Crush injury this morning. Works as a cook, is right-handed. -ordered XR of right hand. -wrapped hand -referred to Orthopedics -given work note and instructed pt to call if symptoms prolong and work requires an updated note. -dicussed to call if not restored to full ROM for occupational therapy referral. documented in this encounter Plan of Treatment Scheduled Referrals Name Type Priority Associated Diagnoses Orde r Schedule Referral to Hand Surgery Outpatient Referral Routine Crushing injury of right hand, initial encounter Expected: 02/02/2025 (Approximate), Expires: 02/02/2026 documented as of this encounter Procedures Procedure Name Priority Date/Time Associated Diagnosis Comments XR HAND 3+ VIEWS RIGHT Routine 02/02/2025 1:32 PM EDT Crushing injury of right hand, initial encounter documented in this encounter Results * XR Hand 3+ Views Right (02/02/2025 1:32 PM EDT) Anatomical Region Laterality Modality Upper Extremities, Hand Right Radiogra [facility] Imaging 02/02/2025 1:32 PM EDT Narrative 02/02/2025 2:05 PM EDT ?[facility] ?[address] ?[place] [address] ?XRay Report ? Signed ? Patient: Ling,Framshelly ?MR#: [id number] ?? [id number] ? : 2000 ?Acct:[id number] ? Age/Sex: 24 / F ?ADM Date: 05/08/25 ? Loc: HO.HHCX ? Attending Dr: Nichelle [place] MD ? Ordering Physician: Nichelle [place] MD ?? Date of Service: 02/02/25 ?? Procedure(s): XR hand RT min 3V ?? Accession Number(s): [id number] ? cc: Nichelle [place] MD ? EXAMINATION: [...] ??Nicanor Guevara MD ??02/02/2025 02:02 PM EDT ?? RP ? Dictated By: ?Nicanor Guevara MD ? Signed By: ?<Electronically signed by Nicanor Guevara MD in OV> ?02/02/25 1402 ? DD/ 1332 ? TD/TT: 02/02/25 1344 ? Warehouse Delivery Driver: ? Procedure Note Kalyan, Image - 02/02/2025 [place] [address] XRay Report Signed Patient: Candi Ling#: [id number] : 2000Acct:[id number] Age/Sex: 24 / FADM Date: 02/02/25 Loc: HO.HHCX Attending Dr: Nichelle [place] MD Ordering Physician: Nichelle [place] MD Date of Service: 02/02/25 Procedure(s): XR hand RT min 3V Accession Number(s): [id number] cc: Nichelle [place] MD EXAMINATION: XR HAND [...] 02/02/25 1402 DD/ 1332 TD/TT: 02/02/25 1344 Warehouse Delivery Driver: Nichelle [place] MD IMG XR PROCEDURES Edited R esult - Final documented in this encounter Visit Diagnoses Diagnosis Crushing injury of right hand, initial encounter- Primary documented in this encounter Additional Health Concerns Assessment Noted Time PHQ-9 Depression Total Score: 18 08/10/ 024 11:30 AM EST documented as of this encounter Care Teams Hammer Runner Relationship Specialty Start Date End Date Verónica Huffman MD [address] [place] [address] PCP - General Family Medicine 10/07/23 documented as of this encounter
--- OUTSIDE RECORDS SUMMARY | 2025-02-02 14:34 | XMS_ITS | Encounter Summary ---
Author Organization [employer] Address [address] [facility] [address] 7[address] [place] [address] Care Team Providers Care Field Marketing Team Leader Name Role Phone Joan Sandy Primary Care Provider [phone] Verónica Huffman MD Primary Care Provider Reason for Visit * Reason Onset Date Comments Appointment Request 03/10/2023 Encounter Details Date Type Department Care Team ([facility] st Contact Info) Description 03/10/2023 Telephone [facility] [address] [place], [place] [phone] Joan Sandy FNP [address] [place], [place] [phone] Appointment Request Social History Tobacco Use Types [...] encounter Miscellaneous Notes * Telephone Encounter - Bruno Kapoor RN - 03/12/2023 10:03 AM EDT Return T/C to [phone] for below message, No answer. LVM to call back on [phone]. * Telephone Encounter - Selvin Soto Stauffer - 03/10/2023 12:45 PM EDT Tc from pt mother requesting a follow up appt with provider due to pt having breast surgery at [facility] Please contact pt mother at [phone] documented in this encounter Plan of Treatment Not on file documented as of this encounter Visit Diagnoses Not on filedocumented in this encounter Care Teams Field Marketing Team Leader Relationship Specialty Start Date End Date Joan Sandy FNP [address] [place] [address] PCP - General Family Medicine 07/03/22 10/06/23 Verónica Huffman MD [address] [place] [address] PCP - General Family Medicine 10/07/23 documented as of this encounter
== END 2025-02-02 13:32 | disposition home or self-care (01) ==
LOC: HO.HHCX 13:31
PROVIDERS: Visit Provider Family Medicine
DX: S67.21XA Crushing injury of right hand, initial encounter (principal)
CPT/HCPCS: 73130

== ENCOUNTER → 2025-02-02 13:32 | Outpatient (BNV) | payer MEDICAID, SELFPAY | PROVIDERS: Visit Provider Radiology Diagnostic Radiology | DX: R22.31 Localized swelling, mass and lump, right upper limb (principal); W22.8XXA Striking against or struck by other objects, initial encounter | CPT/HCPCS: 73130 ==

== ENCOUNTER 2025-02-07 14:46 | Outpatient (AMB) | payer MEDICAID, SELFPAY ==
[2025-02-07 15:07] VITALS: BMI 22.7
--- NOTE | 2025-02-07 15:07 | A.OFFVIS_ITS ---
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 States on 02/02/25, a heavy door smashed her hand into the wall causing severe pain. See at [facility] where xrays were taken, clear for no fracture, and hand was wrapped. Currently states her pain is better however her ROM is limited, she is having sharp pain that radiates down in her arm. Denies numbness, tingling or locking of any finger. 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 Her finger was crushed between a heavy door & a wall. She was seen at the walk in clinic where her finger was wrapped. She complains of pain in her index finger, sharp, but improving since her injury. She complains of limited ROM of her finger. 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/ [employer] Review of Systems Const All systems reviewed & are unremarkable except as noted in HPI and below Physical Exam Vital Signs: BMI result Body Mass Index 22.7 Const General: cooperative, healthy appearing and no acute distress Orientation/consciousness: patient oriented x3 HEENT Head: Yes normocephalic and Yes atraumatic Eyes EOM: EOMs intact bilaterally Resp Effort & Inspection: normal respiratory effort and able to speak in complete sentences Cardio Jugular venous distension: no JVD Skin General skin exam: turgor normal Rashes: no rashes Neuro General: patient oriented x3 Extrem Other: Evaluation of Right Upper Extremity: The patient is alert, oriented, and in no acute distress Neuro: Median, Ulnar, Radial nerves motor and sensory intact and sensation is normal to the tips of all digits Vascular: Cap refill brisk ROM: She can make a fist and extend all her digits Good active extension against resistance No locking or catching Skin: No lacerations or abrasions. General: No Ecchymosis. No Erythema or evidence of infection. TTP base of the index & middle finger proximal phalanx partial thickness scratch, 6mm long, over dorsal ulnar base of the dorsal index finger Healing well. No Erythema or evidence of infection. Radiographs: 3 views of the right hand form 02/02/25 were reviewed by me today in clinic. They show no fractures or dislocations. Psych Appearance: grossly normal Affect: normal affect Attitude: cooperative Assessment & Plan Assessment & Plan (1) Contusion of right index finger: Code(s): S60.021A - Contusion of right index finger without damage to nail, initial encounter Category: Medical Plan Assessment & Plan: 1. Right index finger contusion of base S/P crush injury, DOI: 02/02/25 No evidence of tendon injury or fracture I educated her about this condition I discussed operative and non-operative treatment options I discussed activity modifications, she will perform gentle ROM exercises at home She should gently massage about the injury site to reduce her hypersensitivity She works as a cook. She is scheduled to return to work on 02/08/25. She can follow up prn Scribed for Maryellen Henry MD by William Cornejo medical staff credentialing coordinator, on 02/07/25 at 3:25 PM, EST. Coding Level of Care Code New Pt Level 3 (05691) Diagnoses Contusion of right index finger S60.021A
--- OUTSIDE RECORDS SUMMARY | 2025-02-07 15:52 | XMS_ITS | Clinical Summary ---
Author Organization [employer] Address [address] [place] [address] Care Team Providers Care Home Health Lvn Name Role Phone Verónica Huffman MD Primary Care Provider [phone] Allergies Active Allergy Reactions Criticality Noted Date [...] Description 02/02/2025 2:20 PM EDT Office Visit [facility] [address] [place] [address] Nichelle [place] MD Crushing injury of right hand, initial encounter (Primary Dx) 01/04/2025 Telephone [facility] [address] [place], [place] [phone] Verónica Huffman MD recall 12/09/2024 Population Health [facility] () Department [address] [place] [phone] Provider, Population Health Generic from Last 3 [...] is your housing situation today? I have reginarolando key 11/27/[address] you [...] Laterality Modality Upper Extremities, Hand Right Radiogra [facility] Imaging 02/02/2025 1:32 PM EDT Narrative 02/02/2025 2:05 PM EDT ?[facility] [facility] ?[address] ?[place] [address] ?XRay Report ? Signed ? Patient: Ling,Framshelly ?MR#: [id number] ?? [id number] ? : 2000 ?Acct:[id number] ? Age/Sex: 24 / F ?ADM Date: 02/02/25 ? Loc: HO.HHCX ? Attending Dr: Nichelle [place] MD ? Ordering Physician: Nichelle [place] MD ?? Date of Service: 02/02/25 ?? Procedure(s): XR hand RT min 3V ?? Accession Number(s): [id number] ? cc: Nichelle [place] MD ? EXAMINATION: [...] DD/ 1332 ? TD/TT: 02/02/25 1344 ? Plastic Card Grader Cardroom: ? Procedure Note Shagufta Biggs - 02/02/[address] [address] XRay Report Signed Patient: Roma LingMR#: [id number] : 2000Acct:[id number] Age/Sex: 24 / FADM Date: 02/02/25 Loc: HO.HHCX Attending Dr: Nichelle [place] MD Ordering Physician: Nichelle [place] MD Date of Service: 02/02/25 Procedure(s): XR hand RT min 3V Accession Number(s): [id number] cc: Nichelle [place] MD EXAMINATION: XR HAND [...] 02/02/25 1402 DD/ 1332 TD/TT: 02/02/25 1344 Plastic Card Grader Cardroom: us Nichelle [place] MD IMG XR PROCEDURES Edited R esult - Final * BI US Breast Complete Left (01/19/2023) Anatomical Region Laterality Modality Breast Left Ultrasound Narrative 01/19/2023 Bi-rads 4 - recommended US guided biopsy us Tawana Pfeiffer RELINER IMG US PROCEDURES Final Result from Last 3 Months or Most Recently Relevant to Health Maintenance Insurance [facility] C3 Care Teams Home Health Lvn Relationship Specialty Start Date End Date Verónica Huffman MD [address] [place] [address] PCP - General Family Medicine 10/07/23
--- OUTSIDE RECORDS SUMMARY | 2025-02-07 15:52 | XMS_ITS | Encounter Summary ---
Author Organization [employer] Address [address] [facility] 7t [place] [address] Care Team Providers Care Laborer Adjustable Steel Joist Name Role Phone Verónica Huffman MD Primary Care Provider [phone] Reason for Referral * Consultation (Routine) - Authorized Specialty Diagnoses / Procedures Referred By Chitra huffman Referred To Contact Hand Surgery Diagnoses Crushing injury of right hand, initial encounter Nichelle [place] MD [address] [place] [address] Phone: tel: fax: [facility] [address] [place] [address] Phone: tel: Referral ID Status Reason Start Date Expiration Date Visits Requested Visits Authorized [id number] Authorized Specialty Services Required 02/02/2025 02/02/2026 6 6 Reason for Visit * Reason Comments Hand Injury Encounter Details Date Type Department Care Team (Late st Contact Info) Description 02/02/2025 2:20 PM EDT Office Visit [facility] [address] [place] [address] [phone] Nichelle [place] MD [address] [place] [phone] Crushing injury of right hand, initial encounter [...] 1:13 PM EDT documented in this encounter Progress Notes * Harshal Bj - 02/02/2025 2:20 PM EDT Subjective Patient ID: Rossy Ling is a 24 y.o. female with past medical history of asthma who presents to walk in clinic for Hand Injury. Pt reports this morning a heavy metal basement door hit her hand. 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 Pt notes she did take some tylenol for pain but has extreme pain with movement and slight palpation. Review of Systems Constitutional: Negative for fever and unexpected weight change. Respiratory: Negative for shortness of breath. Cardiovascular: Negative for chest pain. Gastrointestinal: Negative for abdominal pain. Genitourinary: Negative for difficulty urinating. Musculoskeletal: Injury Objective Visit Vitals BP 115/59 (BP Location: Left arm, Patient Position: Sitting, BP Cuff Size: Adult) Pulse 62 Temp 98.8 ??F (37.1 ??C) (Oral) Resp 16 Body mass index is 25.15 kg/m??. Physical Exam Constitutional: Appearance: Normal appearance. Cardiovascular: Rate and Rhythm: Normal rate and regular rhythm. Heart sounds: Normal heart sounds. Pulmonary: Effort: Pulmonary effort is normal. Breath sounds: Normal breath sounds. Musculoskeletal: Right hand: Swelling (at dorsal surface of 2nd and 3rd digit MCP) and tenderness (at dorsal surfaceof 2nd and 3rd digit MCP) present. Cervical back: Normal range of motion and neck supple. Neurological: General: No focal deficit present. Mental Status: She is alert. Psychiatric: Behavior: Behavior normal. Problem List Items Addressed This Visit Crushing injury of right hand - Primary Crush injury this morning. Works as a cook, is right-handed. -ordered XR of right hand. -wrapped hand -referred to Orthopedics -given work note and instructed pt to call if symptoms prolong and work requires an updated note. -dicussed to call if not restored to full ROM for occupational therapy referral. Relevant Medications ibuprofen 600 MG tablet Other Relevant Orders XR Hand 3+ Views Right (Completed) Referral to Hand Surgery -No evidence of acute disease process. Suspect crush injury to right hand. Symptoms mild. -Will treat with anti-inflammatory/analgesic and referral to specialist. -ER precautions discussed. -Seek medical attention for worsening symptoms. I, Harshal Lorenzo, am serving as a scribe to document services personally performed by Dr. Batres, based on the patient's response to questions by provider and providers statements to me. documented in this encounter Miscellaneous Notes * [...] Laterality Modality Upper Extremities, Hand Right [facility] 02/02/2025 1:32 PM EDT Narrative 02/02/2025 2:05 PM EDT ?[facility] ?[address] ?[place] [address] ?XRay Report ? Signed ? Patient: Ling,Framshelly ?MR#: [id number] ?? [id number] ? : 2000 ?Acct:[id number] ? Age/Sex: 24 / F ?ADM Date: 02/02/25 ? Loc: HO.HHCX ? Attending Dr: Nichelle [place] MD ? Ordering Physician: Nichelle [place] MD ?? Date of Service: 02/02/25 ?? Procedure(s): XR hand RT min 3V ?? Accession Number(s): [id number] ? cc: Nichelle [place] MD ? EXAMINATION: [...] DD/ 1332 ? TD/TT: 02/02/25 1344 ? Plant Production Manager: ? Procedure Note Kalyan, Image - 02/02/[address] [address] XRay Report Signed Patient: Candi Ling#: [id number] : 2000Acct:[id number] Age/Sex: 24 / FADM Date: 02/02/25 Loc: HO.HHCX Attending Dr: Nichelle [place] MD Ordering Physician: Nichelle [place] MD Date of Service: 02/02/25 Procedure(s): XR hand RT min 3V Accession Number(s): [id number] cc: Nichelle [place] MD EXAMINATION: XR HAND [...] 02/02/25 1402 DD/ 1332 TD/TT: 02/02/25 1344 Plant Production Manager: Nichelle [place] MD IMG XR PROCEDURES Edited R esult - Final documented in this encounter Visit Diagnoses Diagnosis Crushing injury of right hand, initial encounter- Primary documented in this encounter Additional Health Concerns Assessment Noted Time PHQ-9 Depression Total Score: 18 08/10/ 024 11:30 AM EST documented as of this encounter Care Teams Laborer Adjustable Steel Joist Relationship Specialty Start Date End Date Verónica Huffman MD [address] [place] [phone] PCP - General Family Medicine 10/07/23 documented as of this encounter
--- OUTSIDE RECORDS SUMMARY | 2025-02-07 15:52 | XMS_ITS | Encounter Summary ---
Author Organization [employer] Address [address] [facility] 7t [place] [address] Care Team Providers Care Spring Repairer Helper Hand Name Role Phone Joan Sandy Primary Care Provider [phone] Verónica Huffman MD Primary Care Provider Reason for Visit * Reason Onset Date Comments Appointment Request 03/10/2023 Encounter Details Date Type Department Care Team ([facility] st Contact Info) Description 03/10/2023 Telephone [facility] [address] [place], [place] [phone] Joan Sandy FNP [address] [place], [place] [phone] Appointment Request Social History Tobacco Use Types [...] 03/12/2023 10:03 AM EDT Return T/C to [phone] for below message, No answer. LVM to call back on [phone]. * Telephone Encounter - Selvin Soto Stauffer - 03/10/2023 12:45 PM EDT Tc from pt mother requesting a follow up appt with provider due to pt having breast surgery at [facility] Please contact pt mother at [phone] documented in this encounter Plan of Treatment Not on file documented as of this encounter Visit Diagnoses Not on filedocumented in this encounter Care Teams Spring Repairer Helper Hand Relationship Specialty Start Date End Date Joan Sandy FNP [address] [place] [address] PCP - General Family Medicine 07/03/22 10/06/23 Verónica Huffman MD [address] [place] [address] PCP - General Family Medicine 10/07/23 documented as of this encounter
--- OUTSIDE RECORDS SUMMARY | 2025-02-07 15:52 | XMS_ITS | Encounter Summary ---
Author Organization [employer] Address [address] [facility] 7t [place] [address] Care Team Providers Care Yarn Handler Name Role Phone Joan Sandy Primary Care Provider [phone] Verónica Huffman MD Primary Care Provider Reason for Referral * Imaging (Routine) - Closed Specialty Diagnoses / Procedures Referred By Contac t Referred To Contact Radiology Diagnoses Mass of upper outer quadrant of left breast Procedures US guided biopsy sentinel node core superficial not fna Joan Sandy FNP [address] [place] [address] Phone: tel: fax: [facility] [address] [place] [address] Phone: tel: fax: Referral ID Status Reason Start Date Expiration Date Visits Re quested Visits Authorized [id number] Closed 04/14/2023 04/13/2024 1 1 Encounter Details Date Type Department Care Team ([facility] st Contact Info) Description 04/14/2023 Orders Only [facility] [address] [place] [address] Joan Sandy FNP [address] [place] [address] Mass of upper outer quadrant of left [...] Primary documented in this encounter Care Teams Yarn Handler Relationship Specialty Start Date End Date Joan Sandy FNP [address] [place] [address] PCP - General Family Medicine 07/03/22 10/06/23 Verónica Huffman MD [address] [place] [address] PCP - General Family Medicine 10/07/23 documented as of this encounter
--- OUTSIDE RECORDS SUMMARY | 2025-02-07 15:52 | XMS_ITS | Encounter Summary ---
Author Organization [employer] Address [address] [facility] 7t [place] [address] Care Team Providers Care Plywood And Veneer Repairer Name Role Phone Joan Sandy Primary Care Provider [phone] Verónica Huffman MD Primary Care Provider [phone] Encounter Details Date Type Department Care Team (Late st Contact Info) Description 04/09/2023 Abstract [facility] [address] [place] [address] Joan Sandy FNP [address] [place], [place] [phone] Social History Tobacco Use Types Packs/Day Years [...] on filedocumented in this encounter Care Teams Plywood And Veneer Repairer Relationship Specialty Start Date End Date Joan Sandy FNP [address] [place] [address] PCP - General Family Medicine 07/03/22 10/06/23 Verónica Huffman MD [address] [place] [address] PCP - General Family Medicine 10/07/23 documented as of this encounter
--- OUTSIDE RECORDS SUMMARY | 2025-02-07 15:52 | XMS_ITS | Encounter Summary ---
Author Organization [employer] Address [address] [facility] [address] 7[address] [place] [address] Care Team Providers Care Web Content Coordinator Name Role Phone Verónica Huffman MD Primary Care Provider [phone] Reason for Visit * Reason Onset Date Comments Appointment Request 04/20/2024 Encounter Details Date Type Department Care Team ([facility] st Contact Info) Description 04/20/2024 Telephone [facility] [address] [place] [address] Verónica Huffman MD [address] [place], [place] [phone] Appointment Request Social History Tobacco Use Types [...] documented as of this encounter Care Teams Web Content Coordinator Relationship Specialty Start Date End Date Verónica Huffman MD [address] [place] [address] PCP - General Family Medicine 10/07/23 documented as of this encounter
== END 2025-02-07 15:45 | disposition home or self-care (01) ==
LOC: HO.HOS 14:47
PROVIDERS: Visit Provider Orthopaedic Surgery
DX: S60.021A Contusion of right index finger without damage to nail, initial encounter (principal)
CPT/HCPCS: 99203

== ENCOUNTER → 2025-02-07 14:46 | Outpatient (BNVA) | payer MEDICAID, SELFPAY | PROVIDERS: Visit Provider Orthopaedic Surgery | DX: S60.021A Contusion of right index finger without damage to nail, initial encounter (principal) | CPT/HCPCS: 99202 ==

== ENCOUNTER 2025-05-24 11:34 | Outpatient (REF) | payer MEDICAID, SELFPAY ==
[2025-05-24 13:16] LABS: MANUAL DIFF FLAG NO
[2025-05-24 13:59] LABS: Hematocrit 38.2 % (37.0-47.0); Hemoglobin 12.3 g/dl (12.0-16.0); Imm Gran Abs Auto 0.01 X10*3/uL (0.00-0.03); Imm Gran Pct Auto 0.2 % (0.0-0.4); Lymphocytes Absolute Auto 1.7 X10*3/uL (1.2-4.9); Mean Corpuscular HGB Conc 32.2 g/dl (31.0-35.0); Mean Corpuscular Hemoglobin 26.8 pg (27.0-33.0); Mean Corpuscular Volume 83.2 fL (80.0-98.0); NRBC Abs Auto 0.000 X10*3/uL (0.0-0.012); NRBC Pct Auto 0.0 /100WBC (0.0-0.2); Platelet Count 283 X10*3/uL (160-400); Red Blood Count 4.59 X10*6/uL (4.20-5.50); White Blood Count 4.9 X10*3/uL (4.8-10.8)
[2025-05-24 14:35] LABS: Alanine Aminotransferase 14 U/L (0-31); Albumin Level 4.2 g/dL (3.5-5.0); Alkaline Phosphatase 42 U/L (39-117); Anion Gap 10 (12-20); Aspartate Amino Transferase 21 U/L (5-31); Blood Urea Nitrogen 8 mg/dL (9-16); Calcium 8.9 mg/dL (8.4-10.2); Carbon Dioxide 26 mmol/L (22-29); Chloride 107 mmol/L (96-108); Cholesterol 155 mg/dL (<200); Estimated Glomerular Filt Rate > 60; HDL Cholesterol 55 mg/dL (>40); Potassium 3.8 mmol/L (3.3-5.1); Sodium 139 mmol/L (135-145); Total Protein 6.7 g/dL (6.5-8.0); Triglycerides 50 mg/dL (<150)
[2025-05-25 04:20] LABS: HIV Num 1 0.06 S/CO (0.00-0.99); ~HepC Num1 0.13 S/CO (0.00-0.79); ~Hepatitis C Antibody Nonreactive (Nonreactive)
== END 2025-05-24 11:35 | disposition home or self-care (01) ==
LOC: HO.HHCL 11:34
PROVIDERS: PCP General Practice; Visit Provider Emergency Medicine
DX: Z11.3 Encounter for screening for infections with a predominantly sexual mode of transmission (principal); Z11.59 Encounter for screening for other viral diseases; F32.A Depression, unspecified; Z83.42 Family history of familial hypercholesterolemia
CPT/HCPCS: 36415; 80053; 80061; 84443; 85025; 86592; 86803; 87389

== ENCOUNTER 2025-09-06 15:56 | Outpatient (REF) | payer MEDICAID, SELFPAY ==
--- NOTE | ~2025-09-06 | XR_ITS ---
EXAMINATION: XR KNEE, LEFT CLINICAL INFORMATION: left knee injury, pain leteral knee, s/p fall COMPARISON: None available. TECHNIQUE: Four views of the left knee. FINDINGS: No fracture, dislocation, or suspicious bone lesion. There is normal alignment. Joint spaces are preserved. There is no suprapatellar joint effusion. The soft tissues appear normal. XR/XR knee LT 4V IMPRESSION: Normal left knee. Electronically signed by: Obed Thrasher MD 09/07/2025 09:28 AM MARILIN
--- NOTE | ~2025-09-06 | XR_ITS ---
EXAMINATION: XR ANKLE, LEFT CLINICAL INFORMATION: left ankle pain sp fall, pain at medial ankle COMPARISON: None available. TECHNIQUE: AP, lateral, and mortise views of the left ankle. FINDINGS: No fracture, dislocation, or suspicious bone lesion. There is normal alignment. Ankle mortise is intact. The talar dome is normal. Subtalar joints and calcaneus appear normal. There is no ankle joint effusion. Soft tissues appear normal. XR/XR ankle LT min 3V IMPRESSION: Normal left ankle. Electronically signed by: Obed Thrasher MD 09/07/2025 09:27 AM EST
--- OUTSIDE RECORDS SUMMARY | 2025-09-06 15:20 | XMS_ITS | Encounter Summary ---
Author Organization [employer] Address [address] [facility] 7t [place] [address] Care Team Providers Care Endoscopy Technican Name Role Phone Verónica Huffman MD Primary Care Provider [phone] Reason for Referral * Consultation (Routine) - Pending Review Specialty Diagnoses / Procedures Referred By Chitra huffman Referred To Contact Orthopaedic Surgery Diagnoses Left knee injury, initial encounter Nichelle [place] MD [address] [place] [address] Phone: tel: fax: Referral ID Status Reason Start Date Expiration Date Visits Requested Visits Authorized [id number] Pending Review Specialty Services Required 09/06/2026 1 1 Reason for Visit * Reason Comments left leg pain Encounter Details Date Type Department Care Team (Late st Contact Info) Description 09/06/2025 3:20 PM EST Office Visit [facility] [address] [place] [address] Nichelle [place] MD [address] [place] [address] Sprain of left ankle, unspecified ligament, initial encounter (Primary Dx); Left knee injury, initial encounter Social History Tobacco Use Types Packs/Day Years [...] Sign Reading Time Taken Comments Blood Pressure 108/63 09/06/2025 3:32 PM EST Pulse 64 09/06/2025 3:32 PM EST Temperature 37.1 C (98.7 F) 09/06/2025 3:32 PM EST Respiratory Rate 16 09/06/2025 3:32 PM EST Oxygen Saturation 98% 09/06/2025 3:32 PM EST Inhaled Oxygen Concentration - - Weight 48.2 kg (106 lb 3.2 oz) 09/06/2025 3:32 P M EST Height 144.8 cm (4' 9 ) 09/06/2025 3:32 PM EST Body Mass Index 22.98 09/06/2025 3:32 PM EST documented in this encounter Progress Notes * Nichelle [place] MD - 09/06/2025 3:20 PM EST Subjective Rossy Ling, 24 years Left knee and ankle injury following fall - Slipped on ice while walking and fell on left side, specifically impacting left knee - Remained on ground briefly after fall, then got up and limped home - Limping since the incident, with worsening symptoms noted on Thursday (September 04, 2025) - Reports increased pain and swelling in left knee, with visible bruising - Left ankle described as having bruises, but no mention of swelling or pain except for bruising - Denies hitting head during the fall - Able to walk and work after the incident, but experienced difficulty due to pain and swelling - No hip pain reported - Denies Objective Blood pressure 108/63, pulse 64, temperature 98.7 ??F (37.1 ??C), temperature source Oral, resp. rate 16, height 4' 9 (1.448 m), weight 106 lb 3.2 oz (48.2 kg), SpO2 98%. - MUSCULOSKELETAL: Left knee exhibits increased swelling compared to the right, with visible edema and tenderness on the lateral side. Ecchymosis present, but no erythema or increased warmth. No tenderness on the medial side. Left ankle shows tenderness but is not edematous. Sprain of left ankle, unspecified ligament, initial encounter: - Left ankle sprain suspected; no swelling noted, but tenderness present over medial anterior aspect. - Ordered x-ray of left ankle to rule out fracture. Recommended ibuprofen 600 mg every 8 hours withfood for pain and swelling. Advised rest, ice, compression, and elevation. Left knee injury, initial encounter: - Left knee injury with swelling, tenderness, and ecchymosis over lateral aspect. Possible ligamentor tendon injury; fracture to be ruled out. - Ordered x-ray of left knee with 4 views. Referred to orthopedics for further evaluation. Recommended ibuprofen 600 mg every 8 hours with food for pain and swelling. Advised rest, ice, compression, and elevation. Will wrap knee and provide crutches. Provided work note starting from September 04, 2025. Follow-up recommended if no improvement; MRI to be considered if tear suspected. This note was drafted using [employer] ([email or web address]) technology. The patient/patient's guardian has been informed and has consented to the use of this technology: Yes documented in this encounter Plan of Treatment Scheduled Orders Name Type Priority Associated Diagnoses Orde r Schedule XR Knee 4+ Views Left Imaging Routine Left knee injury, initial encounter Expected: 09/06/2025, Expires: 09/06/2026 XR Ankle 3+ Views Left Imaging Routine Sprain of left ankle, unspecified ligament, initial encounter Expected: 09/06/2025, Expires: 09/06/2026 Scheduled Referrals Name Type Priority Associated Diagnoses Order Schedule Referral to Orthopaedic Surgery Outpatient Referral Routine Left knee injury, initial encounter Expected: 09/06/2025 (Approximate), Expires: 09/06/2026 documented as of this encounter Visit Diagnoses Diagnosis Sprain of left ankle, unspecified ligament, initial encounter- Primary Left knee injury, initial encounter documented in this encounter Additional Health Concerns Assessment Noted Time PHQ-9 Depression Total Score: 18 024 11:30 AM EST documented as of this encounter Care Teams Endoscopy Technican Relationship Specialty Start Date End Date Verónica Huffman MD [address] [place] [address] PCP - General Family Medicine 10/07/23 documented as of this encounter
--- OUTSIDE RECORDS SUMMARY | 2025-09-07 00:41 | XMS_ITS | Encounter Summary ---
Author Organization [employer] Address [address] [place] [address] Care Team Providers Care Pipe Organ Mechanic Apprentice Name Role Phone Verónica Huffman MD Primary Care Provider [phone] Encounter Details Date Type Department Care Team (Latest Contact Info) Description 09/06/2025 Travel Social History Tobacco Use Types Packs/Day Years [...] documented as of this encounter Care Teams Pipe Organ Mechanic Apprentice Relationship Specialty Start Date End Date Verónica Huffman MD [address] [place] [address] PCP - General Family Medicine 10/07/23 documented as of this encounter
--- OUTSIDE RECORDS SUMMARY | 2025-09-07 00:42 | XMS_ITS | Encounter Summary ---
Author Organization [employer] Address [address] [facility] [address] [place] [address] Care Team Providers Care Rug Backing Stenciler Name Role Phone Joan Sandy Primary Care Provider [phone] Verónica Huffman MD Primary Care Provider Reason for Visit * Reason Onset Date Comments Appointment Request 03/10/2023 Encounter Details Date Type Department Care Team (Late st Contact Info) Description 03/10/2023 Telephone [facility] [address] [place] [address] Joan Sandy FNP [address] [place] [address] Appointment Request Social History Tobacco Use Types [...] 03/12/2023 10:03 AM EDT Return T/C to [phone] for below message, No answer. LVM to call back on [phone]. * Telephone Encounter - Selvin Soto Stauffer - 03/10/2023 12:45 PM EDT Tc from pt mother requesting a follow up appt with provider due to pt having breast surgery at [facility] Please contact pt mother at [phone] documented in this encounter Plan of Treatment Not on file documented as of this encounter Visit Diagnoses Not on filedocumented in this encounter Care Teams Rug Backing Stenciler Relationship Specialty Start Date End Date Joan Sandy FNP [address] [place] [address] PCP - General Family Medicine 07/03/22 10/06/23 Verónica Huffman MD [address] [place] [id number] PCP - General Family Medicine 10/07/23 documented as of this encounter
--- OUTSIDE RECORDS SUMMARY | 2025-09-07 00:42 | XMS_ITS | Clinical Summary ---
Author Organization [employer] Address [address] [facility] [address] [place] [address] Care Team Providers Care Naval Engineer Name Role Phone Verónica Huffman MD Primary Care Provider [phone] Allergies Active Allergy Reactions Criticality Noted Date [...] needed for wheezing. 18 g 11 4 Active albuterol 108 (90 Base) MCG/ACT inhalerIndication s:Mild asthma with exacerbation, unspecified whether persistent Inhale 2 puffs every 6 (six) hours if needed for wheezing. 18 g 2 4 Active sertraline (Zoloft) 25 MG tablet Take 1 tablet (25 mg) by mouth in the morning. 30 tablet 4 Active acetaminophen (Tylenol) 500 MG tablet Take 2 tablets (1,000 mg) by mouth every 6 (six) hours if needed for moderate pain or fever for up to 25 doses. 50 tablet 5 Active ibuprofen 400 MG tablet Take 1 tablet (400 mg) by mouth every 6 (six) hours if needed for moderate pain or fever for up to 30 doses. 20 tablet 5 Active ibuprofen 600 MG tabletIndications :Left knee injury, initial encounter Take 1 tablet (600 mg) by mouth every 8 (eight) hours if needed for moderate pain or fever. 30 tablet 5 10/06/19 26 Active Active Problems Problem Noted Date Diagnosed [...] D deficiency 03/13/2020 Allergic rhinitis 07/03/2015 Encounters Date Type Department Care Team Description 09/06/2025 3:20 PM EST Office Visit [facility] [address] [place] [address] Nichelle oHlland MD Sprain of left ankle, unspecified ligament, initial encounter (Primary Dx); Left knee injury, initial encounter 09/06/2025 Travel 07/24/2025 Telephone [facility] [address] [place] [address] Verónica Huffman MD Chart Prep from Last 3 Months Immunizations Immunization Administration Dates Next Due DTaP 11/09/2007, 7,08/14/2003,03/27,2002 [...] your housing situation today? I have regina yesi 11/27/[address] you li [...] Mass Index 22.98 09/06/2025 3:32 PM EST Plan of Treatment Health Maintenance Due Date Last Done Comments Chlamydia and Gonorrhea Screening 2002 Disability Screening 2002 Alcohol/Substance Use Screening 2014 Family Planning (PISQ) 2017 Meningococcal B Vaccine (1 of 2 - Standard) 2018 Pneumococcal Vaccine: Pediatrics (0 to 5 Years) and At-Risk Patients (6 to 49) Years (1 of 2 - PCV) 2021 09/10/2007, 09/10/2007, 08/14/2003, Additional history exists Pap Smear 2023 SDOH Screening 11/26/2024 11/27/2023 Mammogram 01/19/2025 01/19/2023 Depression Monitoring 02/07/2025 08/10/2024, 024 COVID-19 Vaccine ( season) 2025 03/04/2021, 02/04/2021 Influenza Vaccine (#1) 2025 , 07/10/2020, 07/28/2018, Additional history exists Tobacco Screening 05/24/2026 05/24/2025 DTaP/Tdap/Td Vaccines (7 - Td or Tdap) [...] 04/06/20 14 Meningococcal Vaccine Completed 01/18/2019, 015 HIV Screening Completed 05/24/2025 Hepatitis C Screening Completed 05/24/2025 RSV under 20 months Aged Out No longe r eligible based on patient's age to complete this topic Rotavirus Vaccines Aged Out No longer eligible based on patient's age to complete this topic Procedures Procedure Name Priority Date/Time Associated Diagnosis Comments HEPATITIS C AB W/REFL TO HCV RNA, QN, PCR Routine 05/24/2025 11:40 AM EDT Screening examination for STI HIV 1/2 ANTIGEN/ANTIBODY, FOURTH GENERATION W/RFL Routine 05/24/2025 11:40 AM EDT Screening examination for STI BI US BREAST COMPLETE LEFT Routine 01/19/2023 Mass of upper outer quadrant of left breast from Last 3 Months or Most Recently Relevant to Health Maintenance Results * Hepatitis C Antibody with Reflex to HCV, RNA, Quantitative, Real-Time PCR (05/24/2025 11:40 AM EDT) Hepatitis C Antibody Nonreactive Nonreactive [facility] Comment:Antibodies to HCV no t detected; does not exclude early acuteHCV infection. Blood Venous blood specimen / Unknown 05/24/2025 11:40 AM EDT 05/24/2025 1:04 PM EDT Verónica Huffman MD LAB BLOOD ORDERABLES Final Res ult Performing Organization Address City/[facility]/ZIP Co de Phone Number [facility] [address] [place] [address] [phone] * HIV-1/2 Antigen and Antibodies, Fourth Generation, with Reflexes (05/24/2025 11:40 AM EDT) HIV AB/AG Nonreactive Nonreactive [facility] Comment:HIV-1 p24 Ag and/or HIV-1/HIV-2 Ab not detected.A test result that is nonreactive does not exclude thepossibility of exposure to or infection with HIV-1 and/orHIV-2. Nonreactive results in this assay for individualswith prior exposure to HIV-1 and/or HIV-2 may be due toantigen and antibody levels that are below the limit ofdetection of this assay.[employer] HIV Ag/Ab Combo assay result andsupplemental assay results should be interpreted inconjunction with the patient's clinical presentation,history and other laboratory results. If the results areinconsistent with clinical evidence, additional testing issuggested to confirm the result. Blood Venous blood specimen / Unknown 05/24/2025 11:40 AM EDT 05/24/2025 1:04 PM EDT Verónica Huffman MD LAB BLOOD ORDERABLES Final Res ult Performing Organization Address City/[facility]/ZIP Co de Phone Number [facility] [address] [place] [address] [phone] * BI US Breast Complete Left (01/19/2023) Anatomical Region Laterality Modality Breast Left Ultrasound Narrative 01/19/2023 Bi-rads 4 - recommended US guided biopsy us Tawana Pfeiffer EDI ARCHITECT IMG US PROCEDURES Final Result from Last 3 Months or Most Recently Relevant to Health Maintenance [facility] Care Teams Naval Engineer Relationship Specialty Start Date End Date Verónica Huffman MD [address] [place] [address] PCP - General Family Medicine 10/07/23
--- OUTSIDE RECORDS SUMMARY | 2025-09-07 00:42 | XMS_ITS | Encounter Summary ---
Author Organization [employer] Address [address] [place] [address] Care Team Providers Care Transportation Program Director Name Role Phone Verónica Huffman MD Primary Care Provider [phone] Reason for Visit * Reason Onset Date Comments Appointment Request 04/20/2024 Encounter Details Date Type Department Care Team ([facility] st Contact Info) Description 04/20/2024 Telephone [facility] [address] [place], [place] [phone] Verónica Huffman MD [address] [place], [place] [phone] Appointment Request Social History Tobacco Use Types [...] documented as of this encounter Care Teams Transportation Program Director Relationship Specialty Start Date End Date Verónica Huffman MD [address] [place] [id number] PCP - General Family Medicine 10/07/23 documented as of this encounter
--- OUTSIDE RECORDS SUMMARY | 2025-09-07 00:42 | XMS_ITS | Encounter Summary ---
Author Organization [employer] Address [address] [facility] [address] [place] [address] Care Team Providers Care Steam Plant Records Clerk Name Role Phone Joan Sandy Primary Care Provider [phone] Verónica Huffman MD Primary Care Provider [phone] Reason for Referral * Imaging (Routine) - Closed Specialty Diagnoses / Procedures Referred By Contac t Referred To Contact Radiology Diagnoses Mass of upper outer quadrant of left breast Procedures US guided biopsy sentinel node core superficial not fna Joan Sandy FNP [address] [place] [address] Phone: tel: fax: [facility] [address] [place] [address] Phone: tel: fax: Referral ID Status Reason Start Date Expiration Date Visits Re quested Visits Authorized [id number] Closed 04/14/2023 04/13/2024 1 1 Encounter Details Date Type Department Care Team ([facility] st Contact Info) Description 04/14/2023 Orders Only [facility] [address] [place] [address] Joan Sandy FNP [address] [place], [place] [phone] Mass of upper outer quadrant of left [...] Primary documented in this encounter Care Teams Steam Plant Records Clerk Relationship Specialty Start Date End Date Joan Sandy FNP [address] [place] [address] PCP - General Family Medicine 07/03/22 10/06/23 Verónica Huffman MD [address] [place] [address] PCP - General Family Medicine 10/07/23 documented as of this encounter
--- OUTSIDE RECORDS SUMMARY | 2025-09-07 00:42 | XMS_ITS | Encounter Summary ---
Author Organization [employer] Address [address] [facility] [address] [place] [address] Care Team Providers Care Brickmason Helper Name Role Phone Joan Sandy Primary Care Provider [phone] Verónica Huffman MD Primary Care Provider [phone] Encounter Details Date Type Department Care Team (Late st Contact Info) Description 04/09/2023 Abstract [facility] [address] [place] [address] Joan Sandy FNP [address] [place] [address] Social History Tobacco Use Types Packs/Day Years [...] Modality Breast N/A Mammography Narrative 01/22/2023 Left breast US biopsy revealed a fibroadenoma . Patient choose to have lump excised us Historical Provider MD [place] BI PROCEDURES Final R esult documented in this encounter Visit Diagnoses Not on filedocumented in this encounter Care Teams Brickmason Helper Relationship Specialty Start Date End Date Joan Sandy FNP [address] [place] [address] PCP - General Family Medicine 07/03/22 10/06/23 Verónica Huffman MD [address] [place] [address] PCP - General Family Medicine 10/07/23 documented as of this encounter
== END 2025-09-06 15:57 | disposition home or self-care (01) ==
LOC: HO.HHCX 15:56
PROVIDERS: Visit Provider Family Medicine
DX: S93.402A Sprain of unspecified ligament of left ankle, initial encounter (principal); S89.92XA Unspecified injury of left lower leg, initial encounter
CPT/HCPCS: 73564; 73610

== ENCOUNTER → 2025-09-06 15:57 | Outpatient (BNV) | payer MEDICAID, SELFPAY | PROVIDERS: Visit Provider Radiology Diagnostic Radiology | DX: M25.562 Pain in left knee (principal); M25.572 Pain in left ankle and joints of left foot; Z04.3 Encounter for examination and observation following other accident | CPT/HCPCS: 73564; 73610 ==